=== PATIENT | female | born 1950 | race Caucasian/White ===

== ENCOUNTER → 2023-07-23 09:55 | Outpatient (REF) | payer OTHER, SELFPAY | LOC: HWRAD 09:55 | PROVIDERS: ATTENDING PHYSICIAN Family Medicine | DX: Z78.0 Asymptomatic menopausal state (principal); M25.552 Pain in left hip; Z00.00 Encounter for general adult medical examination without abnormal findings; I10 Essential (primary) hypertension | CPT/HCPCS: 71046; 73502; 77080 ==